=== PATIENT | male | born 1960 | race Caucasian/White ===

== ENCOUNTER 2019-03-21 11:50 | Outpatient (CLI) | payer MEDICARE ==
[~2019-03-21] VITALS: Ht 180.3 cm; Wt 94.0 kg
[2019-03-21] VITALS (9 sets, daily range): BP systolic 143–157; BP diastolic 73–85; PULSE 72–82
[2019-03-21 13:02] LABS: HEMOGLOBIN 10.6 g/dl (13.5-18.0); MEAN CELL VOLUME 78 fl (80.0-100.0); MEAN CORPUSCULAR HEMOGLOBIN 25 pg (27.0-31.0); MEAN CORPUSCULAR HGB CONC 31 g/dl (33.0-37.0); MEAN PLATELET VOLUME 8.4 fl (7.4-10.4); PLATELET COUNT 354 K/mm3 (130-400); RED BLOOD COUNT 4.31 M/mm3 (4.20-5.60); REDCELL DISTRIBUTION WIDTH-CV 15.6 % (11.5-14.5)
[2019-03-21 13:03] LABS: HEMATOCRIT 33.8 % (42.0-52.0)
[2019-03-21 13:08] LABS: INR 1.2 (0.8-3.0); PROTHROMBIN TIME 14.1 SECONDS (9.7-12.8)
[2019-03-21 13:18] LABS: CALCIUM 9.4 mg/dL (8.4-10.2); CREATININE, serum 0.41 (0.66-1.25); POTASSIUM 4.4 mmol/L (3.4-5.0)
[2019-03-21] MEDS ORDERED: NORCO 325 MG-101 TAB PO (13:42)
[2019-03-21] MEDS ORDERED: NEURONTIN300 MG/CAP PO (13:43)
[2019-03-21] MEDS ORDERED: PROTONIX 40MG T40 MG PO (13:44)
[2019-03-21] MEDS ORDERED: LASIX 20MG TABL20 MG PO (13:44)
[2019-03-21] MEDS ORDERED: K-DUR 10 MEQ T10 MEQ PO (13:45)
--- NOTE | 2019-03-21 15:40 | NUR ---
INT discontinued intact. Discharge instructions given.
--- NOTE | 2019-03-21 15:54 | NUR ---
Transferred to private car by shaina
== END 2019-03-21 15:54 | disposition home or self-care (01) ==
LOC: COL.RAD 11:50
PROVIDERS: Internal Medicine Cardiovascular Disease
DX: I35.0 Nonrheumatic aortic (valve) stenosis (principal)
CPT/HCPCS: J7030

== ENCOUNTER 2019-09-25 11:56 | Day surgery (SDC) | payer MEDICARE ==
[~2019-09-25] VITALS: Ht 180.3 cm; Wt 92.6 kg
[2019-09-25] VITALS (11 sets, daily range): BP systolic 119–170; BP diastolic 68–96; PULSE 69–85; TEMP 98
[~2019-09-25 11:56] MED LIST: K-DUR 10 MEQ T10 MEQ PO; LASIX 20MG TABL20 MG PO; NEURONTIN300 MG/CAP PO; NORCO 325 MG-101 TAB PO; PROTONIX 40MG T40 MG PO
[2019-09-25 12:55] LABS: HEMATOCRIT 31.8 % (42.0-52.0); HEMOGLOBIN 10.2 g/dl (13.5-18.0); MEAN CELL VOLUME 82 fl (80.0-100.0); MEAN CORPUSCULAR HEMOGLOBIN 26 pg (27.0-31.0); MEAN CORPUSCULAR HGB CONC 32 g/dl (33.0-37.0); MEAN PLATELET VOLUME 7.9 fl (7.4-10.4); PLATELET COUNT 356 K/mm3 (130-400); REDCELL DISTRIBUTION WIDTH-CV 15.6 % (11.5-14.5)
[2019-09-25 13:06] LABS: INR 1.2 (0.8-3.0); PROTHROMBIN TIME 14.2 SECONDS (9.7-12.8)
[2019-09-25 13:09] LABS: PARTIAL THROMBOPLASTIN TIME 35.5 SECONDS (26.0-37.0)
--- NOTE | 2019-09-25 13:20 | NUR ---
L and R PT and DP pulses +1.
[2019-09-25 13:32] LABS: CALCIUM 8.9 mg/dL (8.4-10.2); CREATININE, serum 0.45 (0.66-1.25)
--- NOTE | 2019-09-25 14:37 | NUR ---
Attemped to contact Dr. Bowen to let him know that we will need a new history and physical as the one on the chart is greater than 30 days old. No answer and voicemailbox is full. Will tray again.
--- NOTE | 2019-09-25 14:39 | NUR ---
MD contacted and to come in and update history and physical as required prior to procedure.
--- NOTE | 2019-09-25 14:56 | NUR ---
SEE MERGE DOCUMENTATION FOR MEDICATION ADMINISTRATION TIMES AND INTRA/POST PROCEDURE SEDATION ASSESSMENTS. PLAN FOR L/RHC. MD MEETING WITH PT, ALSO PLAN FOR PERIPHERAL ANGIOGRAPHY. SIGNED CONSENT OBTAINED FOR ALL PROCEDURES. PLANNING FOR LEFT GROIN ACCESS; BILATERAL DP PULSES DOPPLERABLE AND MD NOTIFIED OF THIS.
--- NOTE | 2019-09-25 16:45 | NUR ---
Pt returned to EU 12 per bed s/p heart cath. Pt resting in bed, family at bedside.
--- NOTE | 2019-09-25 17:07 | NUR ---
Report to Casper Cazares RN who assumed care at this time.
--- NOTE | 2019-09-25 19:00 | NUR ---
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 Pt is awake and alert, p,w,d, groin sites look good without bleeding or hematoma. cap refill <3 seconds to bilat lower extremities.
--- NOTE | 2019-09-25 19:45 | NUR ---
Pt has done well during recovery, he has been able to eat and drink, void using urinal and did have a bm on a bedpan while on bedrest. groin sites have remained soft without evidence of hematoma/bleeding, cms remains intact distal. pt has been able to sit at edge of bed, stand, get dressed, and move around a bit without any problems at the groin site. His mobility is limited by his rt foot/ankle wound and pain, so he has not been able to ambulate. We have reviewed dc and f/u instructions related to site care, activity restrictions, pain and when to call md/[email or web address]. Pt denies questions or concerns, his IV is pulled, cath intact, dressing applied, and he is escorted to exit via wheelchair. Pt did receive written dc instructions for heart cath, moderate sedation and dc instructions from MD, however signature page was not signed and may have been sent with patient.
== END 2019-09-25 20:28 | disposition home or self-care (01) ==
LOC: COL.CAR 11:56
PROVIDERS: Internal Medicine Interventional Cardiology
DX: I25.10 Atherosclerotic heart disease of native coronary artery without angina pectoris (principal); I10 Essential (primary) hypertension; I35.0 Nonrheumatic aortic (valve) stenosis; M14.671 Charcot's joint, right ankle and foot; L74.9 Eccrine sweat disorder, unspecified; Z87.891 Personal history of nicotine dependence; Z90.49 Acquired absence of other specified parts of digestive tract; Z83.3 Family history of diabetes mellitus; Z82.3 Family history of stroke; Z82.49 Family history of ischemic heart disease and other diseases of the circulatory system; Z80.9 Family history of malignant neoplasm, unspecified
CPT/HCPCS: C1760; C1769; C1887; C1894; J1644; J2250; J3010; Q9967

== ENCOUNTER → 2021-05-18 | Outpatient (CLI) | payer MEDICARE, OTHER ==
[~2021-05-18] MED LIST changes: +ASPIRIN E.C. 8181 MG PO; +LIPITOR 40MG TA40 MG PO
[2021-05-18 10:27] LABS: CALCIUM 9.1 mg/dL (8.4-10.2); CREATININE, serum 0.7 (0.66-1.25); POTASSIUM 4.6 mmol/L (3.4-5.0)
== END ==
LOC: COL.RAD 05-13 10:00
PROVIDERS: Surgery Vascular Surgery
DX: Z01.818 Encounter for other preprocedural examination (principal); I35.0 Nonrheumatic aortic (valve) stenosis; R59.1 Generalized enlarged lymph nodes; I65.21 Occlusion and stenosis of right carotid artery
CPT/HCPCS: Q9967

== ENCOUNTER → 2021-05-23 | Outpatient (CLI) | payer MEDICARE | LOC: COL.CAR 09:30 → EDSTATUS 09:30 → COL.LAB 12:00 | DX: Z20.822 Contact with and (suspected) exposure to COVID-19 (principal) ==

== ENCOUNTER 2021-06-03 11:33 | Day surgery (SDC) | payer MEDICARE ==
[2021-06-03] VITALS (9 sets, daily range): BP systolic 108–134; BP diastolic 51–78; PULSE 55–74; TEMP 97.9
[~2021-06-03] VITALS: Ht 180.3 cm; Wt 79.1 kg
[~2021-06-03 11:33] MED LIST changes: -ASPIRIN E.C. 8181 MG PO; -LIPITOR 40MG TA40 MG PO
[2021-06-03 12:23] LABS: HEMATOCRIT 27.2 % (42.0-52.0); HEMOGLOBIN 8.5 g/dl (13.5-18.0); MEAN CELL VOLUME 70 fl (80.0-100.0); MEAN CORPUSCULAR HEMOGLOBIN 22 pg (27.0-31.0); MEAN CORPUSCULAR HGB CONC 31 g/dl (33.0-37.0); MEAN PLATELET VOLUME 8.7 fl (7.4-10.4); PLATELET COUNT 269 K/mm3 (130-400); RED BLOOD COUNT 3.88 M/mm3 (4.20-5.60); REDCELL DISTRIBUTION WIDTH-CV 17.4 % (11.5-14.5)
[2021-06-03] MEDS ORDERED: LIPITOR 40MG TA40 MG PO (12:23)
[2021-06-03] MEDS ORDERED: ASPIRIN E.C. 8181 MG PO (12:23)
[2021-06-03 12:33] LABS: CALCIUM 9.3 mg/dL (8.4-10.2); CREATININE, serum 0.53 (0.66-1.25); POTASSIUM 4.3 mmol/L (3.4-5.0)
[2021-06-03 12:35] LABS: INR 1.3 (0.8-3.0); PROTHROMBIN TIME 14.9 SECONDS (9.7-12.8)
[2021-06-03 12:38] LABS: PARTIAL THROMBOPLASTIN TIME 33.9 SECONDS (26.0-37.0)
--- NOTE | 2021-06-03 13:15 | NUR ---
Initial visit; Patient thanked Swaging Machine Operator for prayer prior to his 'Procedure.' Swaging Machine Operator offered God's blessings along with prayer for a successful procedure and a thorough recovery.
--- NOTE | 2021-06-03 17:15 | NUR ---
DC instructions reviewed with pt. He expresses understanding. Air was removed from TR band in 2 ml increments with no bleeding or complication. Rt radial puncture site dressed with folded 2x2 and gauze. Pt has had steady gait around room. INT DC'd with catheter intact. Pt assisted out to friend's car by wheelchair with belongings.
== END 2021-06-03 17:15 | disposition home or self-care (01) ==
LOC: COL.CAR 11:33
PROVIDERS: Internal Medicine Cardiovascular Disease
DX: I25.10 Atherosclerotic heart disease of native coronary artery without angina pectoris (principal); I73.9 Peripheral vascular disease, unspecified; I77.1 Stricture of artery; I35.0 Nonrheumatic aortic (valve) stenosis; Z20.822 Contact with and (suspected) exposure to COVID-19
CPT/HCPCS: J1644; J2250; J3010; J7030; Q9967